=== PATIENT | male | born 1980 | race Caucasian/White ===

== ENCOUNTER 2023-08-17 08:28 | Emergency (ER) | payer SELFPAY ==
[2023-08-17] MEDS ORDERED: Orphenadrine Citrate 60 MG/2 ML VIAL ONE (09:17)
[2023-08-17] MEDS ORDERED: Ketorolac Tromethamine 30 MG (1 mL) VIAL ONE (09:17)
== END 2023-08-17 10:00 | disposition home or self-care (01) ==
LOC: NAV ERS 08:28
DX: M54.50 Low back pain, unspecified (principal); X50.0XXA Overexertion from strenuous movement or load, initial encounter
CPT/HCPCS: 72100; 96372; J1885; J2360

== ENCOUNTER 2023-09-25 20:10 | Emergency (ER) | payer OTHER, SELFPAY ==
[2023-09-25] MEDS ORDERED: Ketorolac Tromethamine 60 MG/2 ML VIAL ONE (20:26)
[2023-09-25] MEDS ORDERED: AMOXicillin 250 MG CAP ONE (20:26)
== END 2023-09-25 20:42 | disposition home or self-care (01) ==
LOC: NAV ERS 20:10
DX: K04.7 Periapical abscess without sinus (principal); K03.81 Cracked tooth; F17.220 Nicotine dependence, chewing tobacco, uncomplicated
CPT/HCPCS: 96372; 99282; J1885

== ENCOUNTER 2024-02-22 14:54 | Emergency (ER) | payer OTHER | END 2024-02-22 16:09 | disposition home or self-care (01) | LOC: NAV ERS 14:54 | DX: T50.901A Poisoning by unspecified drugs, medicaments and biological substances, accidental (unintentional), initial encounter (principal); F17.220 Nicotine dependence, chewing tobacco, uncomplicated | CPT/HCPCS: 99283 ==